=== PATIENT | female | born 1930 | race Caucasian/White ===

== ENCOUNTER 2018-03-31 20:59 | Emergency (ER) | payer OTHER ==
[~2018-03-31] VITALS: Ht 157.5 cm; Wt 86.2 kg
[~2018-03-31 20:59] MED LIST: ATEN50TA PO; FELO5TAB4 PO; FURO-150 PO; GLIP10TA11 PO; LEVO100T9 PO; LOSA100T11 PO; PIOG30TA70 PO; POTA-80 PO; SITA25TA3 PO
[2018-03-31 21:00] VITALS: BP_SYST 206
[2018-03-31 21:27] VITALS: BP_SYST 168
== END 2018-03-31 21:27 | disposition home or self-care (01) ==
LOC: SED 20:59
DX: L03.116 Cellulitis of left lower limb (principal); E11.9 Type 2 diabetes mellitus without complications; I10 Essential (primary) hypertension; Z79.899 Other long term (current) drug therapy
CPT/HCPCS: 99283